=== PATIENT | male | born 1975 ===

== ENCOUNTER 2020-04-08 08:03 | Outpatient (REF) | payer OTHER, SELFPAY ==
[2020-04-08 09:06] LABS: Alanine Aminotransferase 24 U/L (0-40); Albumin Level 4.4 g/dL (3.5-5.0); Alkaline Phosphatase 98 U/L (39-117); Anion Gap 11 (12-20); Aspartate Amino Transferase 19 U/L (5-37); Bilirubin Total 1.1 mg/dL (0.0-1.0); Blood Urea Nitrogen 16 mg/dL (9-16); Calcium 9.3 mg/dL (8.4-10.2); Carbon Dioxide 28 mmol/L (22-29); Chloride 106 mmol/L (96-108); Estimated Glomerular Filt Rate > 60; Glucose Fasting 108 mg/dL (60-99); Potassium 5.2 mmol/L (3.3-5.1); Sodium 140 mmol/L (135-145); Total Protein 6.9 g/dL (6.5-8.0)
== END 2020-04-08 08:04 | disposition home or self-care (01) ==
LOC: HO.LAB 08:03
PROVIDERS: PCP Internal Medicine; Visit Provider Internal Medicine
DX: E16.2 Hypoglycemia, unspecified (principal)
CPT/HCPCS: 36415; 80053

== ENCOUNTER 2020-04-19 13:07 | Emergency (ER) | payer OTHER, SELFPAY ==
[2020-04-19] VITALS (7 sets, daily range): BP systolic 120–169; BP diastolic 73–115; PULSE 71–86; RESP 18–20; TEMP 36.9; O2SAT 95–97; BMI 31.6
--- NOTE | ~2020-04-19 | CT_ITS ---
EXAMINATION: CT HEAD WITHOUT CONTRAST CLINICAL INFORMATION: New onset of severe headache COMPARISON: CT head 05/13/2012 TECHNIQUE: Contiguous axial imaging was performed from the skull base to vertex without intravenous administration of contrast. Coronal and sagittal reformatted images are performed at the CT scanner. [This CT examination was performed using dose optimization techniques as appropriate, variously including the following: *Automated exposure control *Adjustment of mA and/or kV according to patient size (this includes techniques or standardized protocols for targeted exams where dose is matched to indication/reason for exam; i.e. extremities or head) *Use of iterative reconstruction technique] DLP: 667 mGy-cm. FINDINGS: There is no evidence of acute intracranial hemorrhage or territorial infarction. No abnormal mass-effect or midline shift is seen. Sprague to white matter differentiation is well preserved. No extra-axial fluid collections are identified. The ventricles are normal in size. There is no abnormal attenuation within the brain parenchyma. There is no osseous abnormality. The mastoid air cells and visualized portions of the paranasal sinuses are well-aerated. CT/CT head/brain wo con IMPRESSION: No acute intracranial pathology.
[2020-04-19 16:17] LABS: MANUAL DIFF FLAG NO
[2020-04-19 16:20] LABS: Basophils Percent Auto 0.2 % (0-2); Eosinophils Percent Auto 0.3 % (0-4); Hematocrit 44.9 % (42-52); Hemoglobin 15.3 g/dl (14.0-18.0); Imm Gran Abs Auto 0.02 X10*3/uL (0.00-0.03); Imm Gran Pct Auto 0.2 % (0.0-0.4); Lymphocytes Absolute Auto 1.9 X10*3/uL (1.2-4.9); Lymphocytes Percent Auto 19.2 % (20-40); Mean Corpuscular HGB Conc 34.1 g/dl (31.0-36.0); Mean Corpuscular Hemoglobin 30.9 pg (27.0-33.0); Mean Corpuscular Volume 90.7 fL (80-98); Mean Platelet Volume 10.5 fL (9.4-12.4); Monocytes Absolute Auto 0.7 X10*3/uL (0.1-1.2); Monocytes Percent Auto 6.9 % (2-11); Neutrophils Absolute Auto 7.3 X10*3/uL (2.0-8.3); Neutrophils Percent Auto 73.2 % (45-73); Platelet Count 235 X10*3/uL (160-400); Red Blood Count 4.95 X10*6/uL (4.60-5.80); Red Cell Distribution Width 12.1 % (11.0-16.0); White Blood Count 9.9 X10*3/uL (4.8-10.8)
[2020-04-19 16:47] LABS: Anion Gap 12 (12-20); Blood Urea Nitrogen 17 mg/dL (9-16); Calcium 9.1 mg/dL (8.4-10.2); Carbon Dioxide 27 mmol/L (22-29); Chloride 105 mmol/L (96-108); Creatinine Clr Calc Pharmacy 90.7; Estimated Glomerular Filt Rate > 60; Glucose Random 83 mg/dL (60-115); Sodium 140 mmol/L (135-145)
--- NOTE | 2020-04-19 19:53 | ED_ITS ---
HPI - Headache General Chief Complaint: Headache Stated Complaint: HEADACHE Time Seen by Provider: 04/19/20 14:16 Source: patient Mode of arrival: ambulatory Limitations: no limitations History of Present Illness HPI Narrative: Patient history of anxiety and increased stress at home lately complaining of headache for last 1 week specially localized on the left side patient denies any history of migraine headache no nausea no vomiting had increased anxiety and poor sleep lately no photosensitivity no fever no chills no neck pain no head injury no vision change Related Data Previous Rx's Medication Instructions Recorded qezpsawdlj-lqhhzgetjpwcz-qnjz 1 cap PO Q6H PRN #20 cap 04/19/20 [Fioricet] lorazepam [Ativan] 1 mg PO BEDTIME PRN #10 tab 04/19/20 Allergies Allergy/AdvReac Type Severity Reaction Status Date / Time No Known Allergies Allergy Unverified 11/20/19 18:18 [No Known Allergies*] Review of Systems Review of Systems: Constitutional : No Weight loss, No Fever, No Chills ENT/Mouth : No sore throat, No Rhinorrhea Eyes: No Eye Pain, No Swelling Cardiovascular : No Chest Pain, no palpitations Respiratory : No Cough, No Sputum, no shortness of breath Gastrointestinal : no Nausea, No Vomiting, No Diarrhea, No abdominal Pain, no black stools Genitourinary : No Dysuria, No Urinary Frequency Musculoskeletal : No joint pain, No Myalgias, No Joint Swelling Skin : No Skin Lesions, No rash Neuro : No Weakness, No Numbness, No Dizziness, ++ Headache Psych : + Anxiety/Panic, No Depression Heme/Lymph: No Bruising, No Lymphadenopathy Endocrine : No Polyuria, No Polydipsia All other systems reviewed and are negative [facility] [place] Past Medical History Medical History Hypoglycemia Family History Family History Father Heart problem Mother Cancer Social History Social History Alcohol intake: never Smoking Status: Never smoker Use of substances other than those prescribed or required for medical reasons: No Advance Directives: No Advance Directives Information Provided: Yes Physical Exam Vital Signs: Vital Signs: Last Vital Signs Temp 98.4 F 04/19/20 16:05 Pulse 71 02/15/21 22:10 Resp 18 04/19/20 22:10 BP 135/93 H 04/19/20 22:10 Pulse Ox 95 04/19/20 20:51 Body Mass Index 31.6 Appearance: Alert. Oriented X3. No acute distress. Anxious Eyes: Pupils equal, round and reactive to light. ENT: Pharynx normal. Neck: Normal inspection. Neck supple. CVS: Normal heart rate and rhythm. Pulses normal. Respiratory: No respiratory distress. Breath sounds normal. Abdomen: Soft and nontender. Bowel sounds are present, no mass palpable, no CVA tenderness Skin: Skin warm and dry. Normal skin color. Normal skin turgor. Extremities: No lower extremity edema. Neuro: Oriented X 3. No motor deficit. No sensory deficit. MDM - Headache MDM Narrative Medical decision making narrative: Patient with increased anxiety and stress on arrival patient's blood pressure was 128/77 during stay in the ER blood pressure increased when he started looking at the blood pressure reading to 168/115 after relaxing blood pressure dropped to 135/93. Patient headache is likely from tension headache. Will give him Fioricet and Ativan to relax advised to check his blood pressure daily and follow up with PCP Differential Diagnosis Differential diagnosis: Likely migraine and tension headache Lab Data Attestation: I reviewed the patient's lab results. Result diagrams: 04/19/20 16:12 04/19/20 16:12 Labs: Lab Results 04/19/20 04/19/20 Range/Units 16:12 16:12 WBC 9.9 (4.8-10.8) X10*3/uL RBC 4.95 (4.60-5.80) X10*6/uL Hgb 15.3 (14.0-18.0) g/dl Hct 44.9 (42-52) % MCV 90.7 (80-98) fL MCH 30.9 (27.0-33.0) pg MCHC 34.1 (31.0-36.0) g/dl RDW 12.1 (11.0-16.0) % Plt Count 235 (160-400) X10*3/uL MPV 10.5 (9.4-12.4) fL Immature Gran % (Auto) 0.2 (0.0-0.4) % Neut % (Auto) 73.2 H (45-73) % Lymph % (Auto) 19.2 L (20-40) % [place] % (Auto) 6.9 (2-11) % Eos % (Auto) 0.3 (0-4) % Baso % (Auto) 0.2 (0-2) % Lymph # (Auto) 1.9 (1.2-4.9) X10*3/uL [place] # (Auto) 0.7 (0.1-1.2) X10*3/uL Eos # (Auto) 0.0 (0.0-0.4) X10*3/uL Baso # (Auto) 0.0 (0.0-0.2) X10*3/uL Abs Immat Gran (auto) 0.02 (0.00-0.03) X10*3/uL Absolute Neuts (auto) 7.3 (2.0-8.3) X10*3/uL Absolute Nucleated RBC 0.000 (0.0-0.012) X10*3/uL Nucleated RBC % (auto) 0.0 (0.0-0.2) /100WBC Sodium 140 (135-145) mmol/L Potassium 4.0 D (3.3-5.1) mmol/L Chloride 105 (96-108) mmol/L Carbon Dioxide 27 (22-29) mmol/L Anion Gap 12 (12-20) BUN 17 H (9-16) mg/dL Creatinine 1.06 (0.5-1.4) mg/dL Estim Creat Clear Calc 90.7 Estimated GFR > 60 Random Glucose 83 (60-115) mg/dL Calcium 9.1 (8.4-10.2) mg/dL Discharge Plan Discharge Clinical Impression: Tension headache, Anxiety Patient Disposition: Home, Self-Care Instructions: Tension Headache (ED), Anxiety (ED) Additional Instructions: Rest at home take medication to relax. Check blood pressure daily should be less than 140/90. Take medication for headache Prescriptions: New qfuebvmtrh-coomhujrnhtde-fhkq [Fioricet] 50-300-40 mg capsule 1 cap PO Q6H PRN (Reason: pain) Qty: 20 RF: 0 lorazepam [Ativan] 1 mg tablet 1 mg PO BEDTIME PRN (Reason: sleep) Qty: 10 RF: 0 Print Language: Russian
--- NOTE | 2020-04-19 20:54 | PC.NURSE ---
pt had a bowl of soup and bp is elevated. pt has hx of htn, pain to head unreleived with imitrex.
--- NOTE | 2020-04-19 21:15 | PC.NURSE ---
pt taken to ct.
[2020-04-19] MEDS: Butalb/Acetamin/Caff 50/325/40 TABLET 1 TAB PO (22:07)
== END 2020-04-19 23:03 | disposition home or self-care (01) ==
PROVIDERS: Emergency Provider Internal Medicine; PCP Internal Medicine
DX: G44.209 Tension-type headache, unspecified, not intractable (principal); F41.9 Anxiety disorder, unspecified
CPT/HCPCS: 36415; 70450; 80048; 85025; 96372; 99284; J3030

== ENCOUNTER 2020-10-27 09:53 | Outpatient (REF) | payer OTHER, SELFPAY ==
--- NOTE | 2020-10-27 09:56 | EMG_ITS ---
This is a 45-year-old man with a 2-year history of bilateral lower extremity pain and numbness. PHYSICAL EXAMINATION: On examination, he is alert and oriented with normal intellectual functions. Cranial nerves II through XII are normal. Muscle tone and strength are normal. IMPRESSION: Rule out peripheral neuropathy. Nerve conduction EMG study: Normal electrodiagnostic study of both lower extremities with no evidence of generalized peripheral neuropathy or nerve entrapment. Normal EMG of the right L4-S1 innervated muscles. MD KARIN Maria/SUSANA / [id number]
== END 2020-10-27 09:54 | disposition home or self-care (01) ==
LOC: HO.NEURO 09:53
PROVIDERS: Visit Provider Internal Medicine
DX: R20.0 Anesthesia of skin (principal)
CPT/HCPCS: 95885; 95912

== ENCOUNTER 2021-02-14 16:27 | Emergency (ER) | payer OTHER, SELFPAY ==
--- NOTE | 2021-02-14 | ECG_ITS ---
Test Reason : cp Blood Pressure : / mmHG Vent. Rate : 103 BPM Atrial Rate : 103 BPM P-R Int : 140 ms QRS Dur : 076 ms QT Int : 342 ms P-R-T Axes : 019 044 025 degrees QTc Int : 448 ms Sinus tachycardia Anterior infarct , age undetermined Abnormal ECG When compared to the previous EKG of No significant changes seen Referred By: Generic ED Physician Electronically Signed By:RONALD MULLIGAN MD
--- NOTE | ~2021-02-14 | XR_ITS ---
EXAMINATION: XR CHEST CLINICAL INFORMATION: Chest pain COMPARISON: Chest x-ray 04/22/2018 TECHNIQUE: Frontal view of the chest was obtained. 6:52 PM FINDINGS: No significant abnormality is noted involving the heart, lungs, mediastinum, bony thorax or soft tissues. XR/XR chest 1V IMPRESSION: Unremarkable examination.
[2021-02-14 18:35] VITALS: BP 129/96; PULSE 100; RESP 18; TEMP 36.9; O2SAT 98; BMI 31.6
[2021-02-14 20:32] LABS: MANUAL DIFF FLAG NO
[2021-02-14 20:34] LABS: Basophils Percent Auto 0.1 % (0-2); Eosinophils Percent Auto 0.2 % (0-4); Hematocrit 49.4 % (42.0-52.0); Hemoglobin 16.9 g/dl (14.0-18.0); Imm Gran Abs Auto 0.04 X10*3/uL (0.00-0.03); Imm Gran Pct Auto 0.3 % (0.0-0.4); Lymphocytes Percent Auto 8.2 % (20-40); Mean Corpuscular HGB Conc 34.2 g/dl (31.0-36.0); Mean Corpuscular Hemoglobin 31.1 pg (27.0-33.0); Mean Corpuscular Volume 90.8 fL (80.0-98.0); Mean Platelet Volume 10.6 fL (9.4-12.4); Monocytes Absolute Auto 0.4 X10*3/uL (0.1-1.2); Monocytes Percent Auto 3.6 % (2-11); Neutrophils Absolute Auto 10.2 x10*3/uL (2.0-8.3); Neutrophils Percent Auto 87.6 % (45-73); Platelet Count 231 X10*3/uL (160-400); Red Blood Count 5.44 X10*6/uL (4.60-5.80); Red Cell Distribution Width 12.6 % (11.0-16.0); White Blood Count 11.7 X10*3/uL (4.8-10.8)
[2021-02-14 20:46] LABS: Anion Gap 14 (12-20); Blood Urea Nitrogen 15 mg/dL (9-16); Calcium 9.9 mg/dL (8.4-10.2); Carbon Dioxide 26 mmol/L (22-29); Chloride 104 mmol/L (96-108); Creatinine Clr Calc Pharmacy 71.5; Estimated Glomerular Filt Rate 58; Glucose Random 117 mg/dL (60-115); Potassium 3.8 mmol/L (3.3-5.1); Sodium 140 mmol/L (135-145)
[2021-02-14 20:54] LABS: Troponin-I High Sensitivity < 3.5 ng/L (<3.5-35.0)
--- NOTE | 2021-02-14 21:12 | ED_ITS ---
HPI - Chest Pain General Chief Complaint: Chest Pain Stated Complaint: Chest pain/vomiting/Diarrhea Time Seen by Provider: 02/14/21 21:12 History of Present Illness HPI narrative: Patient is a 46-year-old male presents today with having chest pain that is over the right chest. It is constant. No diaphoresis. No fever no chills. No coughing or congestion. Positive history of nausea vomiting diarrhea generalized malaise. No history of diabetes, hypertension, smoking, [place]. Patient from home. No travel history. patient received his coronavirus vaccine. No history of blood clots. No history of leg swelling. No travel history. Related Data Previous Rx's Medication Instructions Recorded clotrimazole-betamethasone 1 1 appl TOPICAL BID 14 Days #15 g 02/10/21 %-0.05 % topical cream omeprazole 40 mg capsule,delayed 40 mg PO DAILY 90 Days #90 cap 02/10/21 release ondansetron 4 mg disintegrating 4 mg PO TID PRN 5 Days #10 tab 02/14/21 tablet Allergies Allergy/AdvReac Type Severity Reaction Status Date / Time No Known Allergies Allergy Verified 02/14/21 18:34 [No Known Allergies*] Review of Systems Review of Systems: Positive chest pain. No shortness of breath no diaphoresis. Yes all other systems are reviewed and are negative PMFSH Past Medical History Attestation statement: The following information was validated with the patient. Medical History Anxiety Class 1 obesity with body mass index (BMI) of 32.0 to 32.9 in adult GERD (gastroesophageal reflux disease) Hand numbness History of kidney stones Hypoglycemia Skin lesion Surgical History No pertinent past surgical history Family History Family History Father Heart problem Mother Cancer Social History Social History Housing: House Alcohol intake: former Year quit: 2005 Patient Tobacco Use Status: Former Tobacco user Tobacco use type: Cigarette Years Smoked: 6 years e-Cigarette/Vaping Use: Never Used Second Hand Smoke Exposure: No Advance Directives: No Advance Directives Information Provided: Yes service: No Current occupational status: employed Current occupational exposures/hazards: No Physical Exam Vital Signs: Vital Signs: Last Vital Signs Temp 98.5 F 02/14/21 18:35 Pulse 100 02/14/21 18:35 Resp 18 02/14/21 18:35 BP 129/96 H 02/14/21 18:35 Pulse Ox 98 02/14/21 18:35 BMI result Body Mass Index 31.6 Appearance: Alert. Oriented X3. No acute distress. Eyes: Pupils equal, round and reactive to light. ENT: Pharynx normal. Neck: Normal inspection. Neck supple. No lymph nodes noted. No crepitus CVS: Normal heart rate and rhythm. Pulses normal. Normal S1 and S2 Respiratory: No respiratory distress. Breath sounds normal. No Wheezing. No rales Abdomen: Soft and nontender. No rigidity. No distention. good BS x4 Skin: Skin warm and dry. Normal skin color. Normal skin turgor. Extremities: No lower extremity edema. Neurovascular intact to all extremities. No Lacerations. No Rash Neuro: Oriented X 3. No motor deficit. No sensory deficit. Moving all extermities. No slurred speech MDM - Chest Pain Lab Data Result diagrams: 02/14/21 20:27 02/14/21 20:27 Labs: Lab Results 02/14/21 02/14/21 02/14/21 Range/Units 20:27 20:27 20:27 WBC 11.7 H (4.8-10.8) X10*3/uL RBC 5.44 (4.60-5.80) X10*6/uL Hgb 16.9 (14.0-18.0) g/dl Hct 49.4 (42.0-52.0) % MCV 90.8 (80.0-98.0) fL MCH 31.1 (27.0-33.0) pg MCHC 34.2 (31.0-36.0) g/dl RDW 12.6 (11.0-16.0) % Plt Count 231 (160-400) X10*3/uL MPV 10.6 (9.4-12.4) fL Immature Gran % (Auto) 0.3 (0.0-0.4) % Neut % (Auto) 87.6 H (45-73) % Lymph % (Auto) 8.2 L (20-40) % [place] % (Auto) 3.6 (2-11) % Eos % (Auto) 0.2 (0-4) % Baso % (Auto) 0.1 (0-2) % Lymph # (Auto) 1.0 L (1.2-4.9) X10*3/uL [place] # (Auto) 0.4 (0.1-1.2) X10*3/uL Eos # (Auto) 0.0 (0.0-0.4) X10*3/uL Baso # (Auto) 0.0 (0.0-0.2) X10*3/uL Abs Immat Gran (auto) 0.04 H (0.00-0.03) X10*3/uL Absolute Neuts (auto) 10.2 H (2.0-8.3) x10*3/uL Absolute Nucleated RBC 0.000 (0.0-0.012) X10*3/uL Nucleated RBC % (auto) 0.0 (0.0-0.2) /100WBC Sodium 140 (135-145) mmol/L Potassium 3.8 (3.3-5.1) mmol/L Chloride 104 (96-108) mmol/L Carbon Dioxide 26 (22-29) mmol/L Anion Gap 14 (12-20) BUN 15 (9-16) mg/dL Creatinine 1.33 (0.5-1.4) mg/dL Estim Creat Clear Calc 71.5 Estimated GFR 58 Random Glucose 117 H D (60-115) mg/dL Calcium 9.9 D (8.4-10.2) mg/dL Troponin I High Sens < 3.5 (<3.5-35.0) ng/L COVID-19 (JOHAN) (Negative) COVID-19 Clin Com 02/14/21 Range/Units 21:25 WBC (4.8-10.8) X10*3/uL RBC (4.60-5.80) X10*6/uL Hgb (14.0-18.0) g/dl Hct (42.0-52.0) % MCV (80.0-98.0) fL MCH (27.0-33.0) pg MCHC (31.0-36.0) g/dl RDW (11.0-16.0) % Plt Count (160-400) X10*3/uL MPV (9.4-12.4) fL Immature Gran % (Auto) (0.0-0.4) % Neut % (Auto) (45-73) % Lymph % (Auto) (20-40) % [place] % (Auto) (2-11) % Eos % (Auto) (0-4) % Baso % (Auto) (0-2) % Lymph # (Auto) (1.2-4.9) X10*3/uL [place] # (Auto) (0.1-1.2) X10*3/uL Eos # (Auto) (0.0-0.4) X10*3/uL Baso # (Auto) (0.0-0.2) X10*3/uL Abs Immat Gran (auto) (0.00-0.03) X10*3/uL Absolute Neuts (auto) (2.0-8.3) x10*3/uL Absolute Nucleated RBC (0.0-0.012) X10*3/uL Nucleated RBC % (auto) (0.0-0.2) /100WBC Sodium (135-145) mmol/L Potassium (3.3-5.1) mmol/L Chloride (96-108) mmol/L Carbon Dioxide (22-29) mmol/L Anion Gap (12-20) BUN (9-16) mg/dL Creatinine (0.5-1.4) mg/dL Estim Creat Clear Calc Estimated GFR Random Glucose (60-115) mg/dL Calcium (8.4-10.2) mg/dL Troponin I High Sens (<3.5-35.0) ng/L COVID-19 (JOHAN) Negative (Negative) COVID-19 Clin Com See Note Discharge Plan Discharge Clinical Impression: Atypical chest pain Patient Disposition: Home, Self-Care Instructions: Chest Pain (ED), Acute Nausea and Vomiting (ED) Prescriptions: New ondansetron 4 mg tablet,disintegrating 4 mg PO TID PRN (Reason: nausea and vomiting) 5 Days Qty: 10 RF: 0 No Action omeprazole 40 mg capsule,delayed release(DR/EC) 40 mg PO DAILY 90 Days Qty: 90 RF: 1 clotrimazole-betamethasone 1-0.05 % cream 1 appl topical BID 14 Days Qty: 15 RF: 1 Referrals: Shannon Swift MD [Primary Care Provider] - 2 days Print Language: Mauritian
[2021-02-14 22:17] LABS: COVID-19 Test Negative (Negative); IDNOW Serial# 55D5AD1C
[2021-02-14 23:05] VITALS: BP 130/96; PULSE 98
== END 2021-02-14 23:07 | disposition home or self-care (01) ==
PROVIDERS: Emergency Provider Emergency Medicine Emergency Medical Services; PCP Internal Medicine
DX: R07.89 Other chest pain (principal); Z20.822 Contact with and (suspected) exposure to COVID-19
CPT/HCPCS: 36415; 71045; 80048; 84484; 85025; 87635; 93005; 99283; 99284

== ENCOUNTER 2021-03-30 10:21 | Outpatient (REF) | payer OTHER, SELFPAY ==
--- NOTE | 2021-03-30 10:26 | EMG_ITS ---
This is a 46-year-old man with history of bilateral hand pain and numbness. His neurological exam is normal. There is no Tinel or Phalen sign. IMPRESSION: Rule out carpal tunnel syndrome. Nerve conduction EMG study: Mild carpal tunnel syndrome on the right, early carpal tunnel syndrome on the left. Normal EMG of the right C5 through T1 innervated muscles. MD KARIN Maria/SUSANA / [id number]
== END 2021-03-30 10:22 | disposition home or self-care (01) ==
LOC: HO.NEURO 10:21
PROVIDERS: Visit Provider Internal Medicine
DX: R20.0 Anesthesia of skin (principal)
CPT/HCPCS: 95885; 95913

== ENCOUNTER 2022-07-25 06:14 | Outpatient (REF) | payer OTHER, SELFPAY ==
--- NOTE | ~2022-07-25 | XR_ITS ---
EXAMINATION: XR CHEST CLINICAL INFORMATION: Chest pain. COMPARISON: Chest radiograph 02/14/2021. TECHNIQUE: 2 views of the chest were obtained. FINDINGS: Normal appearance of the cardiomediastinal silhouette. Minimal diffuse interstitial thickening without focal airspace opacity. No pleural effusion or pneumothorax. Minimal biapical subpleural thickening is unchanged. Thoracic spondylosis. No acute osseous abnormalities. The visualized upper abdomen is within normal limits. XR/XR chest 2V IMPRESSION: Minimal diffuse interstitial thickening which is nonspecific and could be associated with asthma, bronchitis, reactive airways disease or atypical viral infections.
[2022-07-25 07:33] LABS: Hematocrit 43.6 % (42.0-52.0); Mean Corpuscular HGB Conc 34.4 g/dl (31.0-36.0); Mean Corpuscular Hemoglobin 30.8 pg (27.0-33.0); Mean Corpuscular Volume 89.5 fL (80.0-98.0); Mean Platelet Volume 11.3 fL (9.4-12.4); Platelet Count 228 X10*3/uL (160-400); Red Blood Count 4.87 X10*6/uL (4.60-5.80); Red Cell Distribution Width 12.3 % (11.0-16.0)
[2022-07-25 08:04] LABS: Alanine Aminotransferase 28 U/L (0-40); Albumin Level 4.2 g/dL (3.5-5.0); Alkaline Phosphatase 105 U/L (39-117); Anion Gap 13 (12-20); Aspartate Amino Transferase 18 U/L (5-37); Bilirubin Total 1.2 mg/dL (0.0-1.0); Blood Urea Nitrogen 16 mg/dL (9-16); Calcium 9.1 mg/dL (8.4-10.2); Carbon Dioxide 24 mmol/L (22-29); Chloride 106 mmol/L (96-108); Cholesterol 203 mg/dL; Estimated Glomerular Filt Rate > 60; Glucose Fasting 100 mg/dL (60-99); HDL Cholesterol 27 mg/dL; LDL Cholesterol Calculated 147 mg/dl; Potassium 4.2 mmol/L (3.3-5.1); Sodium 139 mmol/L (135-145); Total Protein 6.6 g/dL (6.5-8.0); Triglycerides 149 mg/dL
[2022-07-25 08:26] LABS: TSH reflex Free T4 1.57 uIU/mL (0.32-4.0)
== END 2022-07-25 06:15 | disposition home or self-care (01) ==
LOC: HO.LAB 06:14
PROVIDERS: PCP Internal Medicine; Visit Provider Physician Assistant
DX: R07.9 Chest pain, unspecified (principal); R53.83 Other fatigue; E66.9 Obesity, unspecified; Z68.32 Body mass index [BMI] 32.0-32.9, adult; Z13.1 Encounter for screening for diabetes mellitus
CPT/HCPCS: 36415; 71046; 80053; 80061; 84443; 85027

== ENCOUNTER → 2022-08-15 07:48 | Outpatient (REF) | payer OTHER, SELFPAY ==
--- NOTE | 2022-08-15 08:01 | CA_ITS ---
Acquisition Time: 2022-08-15 08:11:46 Total Exercise Time: 00:08:10 Test Indications: CP Medications: SEE H Protocol: MILTON Max HR: 153 BPM 87% of Pred: 175 BPM Max BP: 160/080 mmHG Max Work Load: 10.1 METS Exercise stress test with exercise 8 min 10 sec of Milton protocol, achieving 87% MPHR, 10.1 METs, with fatigue and mild sob with request to stop, no chest discomfort, without arrythmia, with normotensive response to exercise, without EKG changes meeting critieria for ischemia. Test reviewed with Dr Jimenez Referred By: Sheng Venegas Overread By: JERMAIN ALBARADO
== END ==
LOC: HO.CARD 07:48
PROVIDERS: PCP Internal Medicine; Visit Provider Physician Assistant
DX: R07.9 Chest pain, unspecified (principal); R06.81 Apnea, not elsewhere classified
CPT/HCPCS: 93017

== ENCOUNTER 2022-10-24 13:35 | Outpatient (AMB) | payer OTHER, SELFPAY ==
[2022-10-24 14:11] VITALS: BP 142/80; PULSE 88; O2SAT 97
--- NOTE | 2022-10-24 14:11 | MHC.OFFVIS ---
Intake Vital Signs 10/24/22 14:11 Weight 199 lb 8.293 oz BP 142/80 H Blood Pressure Location Lt brachial Position Sitting Pulse 88 Pulse Source Pulse Oximeter Pulse Oximetry (%) 97 Oxygen Delivery Method Room Air Intake Visit Reasons: Dyspnea/SOFIA Allergies No Known Allergies [No Known Allergies*] Allergy (Verified 10/24/22 14:42) Medication List - Last Reconciled 10/24/22 by Gisele Hunt MD clotrimazole-betamethasone 1-0.05 % 1 appl topical BID 2 weeks CPAP (CPAP Machine/Device) As directed omeprazole 40 mg PO DAILY 90 days Do you need a note to return to daycare/school/sports/work: No HPI Dyspnea/SOFIA HPI Details THIS 47 YEARS OLD GENTLEMAN [place] IS BEING SEEN FOR THE 1ST TIME, FOR ONGOING MANAGEMENT OF HIS SLEEP APNEA AND DYSPNEA ON EXERTION. SINCE THE BEGINNING OF 2022, HE HAS GRADUALLY INCREASING DYSPNEA ON EXERTION, HE LIVES ON THE 2ND FLOOR AND GOING UP STAIRS MAKES HIM VERY SHORT OF BREATH. HE DOES NOT HAVE ANY COUGH OR WHEEZING ALONG WITH DYSPNEA. HE USUALLY HAS TO STOP AT THE TOP OF THE STAIRS. DENIES ANY CHEST PAIN . THIS DYSPNEA ON EXERTION COINCIDES WITH WEIGHT GAIN, HE CLAIMS THAT HIS NORMAL WEIGHT USED TO BE 170-175, AND HE GAINED ABOUT 20-25 LB OF WEIGHT. HE DOES NOT USE ANY BRONCHODILATOR INHALER. HE DENIES ANY RECURRENT RESPIRATORY INFECTIONS. SINCE THE BEGINNING OF THIS YEAR HE WAS ALSO HAVING DIFFICULTY IN SLEEPING, DUE TO FREQUENT AWAKENINGS, AND HIS TOLD HIM THAT HE SNORES A LOT. SO HE DID UNDERGO HOME-BASED SLEEP STUDY ON 08/16/2022, WHICH SHOWED MODERATELY SEVERE OBSTRUCTIVE SLEEP APNEA WITH TOTAL SLEEP TIME AHI 23.3, MOSTLY IN SUPINE POSITION. HIS PRIMARY CARE PHYSICIAN HAS ALREADY ORDERED THE CPAP, WITH AUTO PAP MODE, AND HE HAS STARTED USING IT REGULARLY. HE STATES THAT ACCORDING TO HIS HE DOES NOT SNORE ANYMORE AND HIS SLEEP IS DEFINITELY IMPROVED. HE STILL FEELS WEAK AND SOMEWHAT TIRED DURING THE DAYTIME. HE USED TO SMOKE IN YOUNGER AGE, FOR ABOUT 6-8 YEARS, BUT QUIT SMOKING LONG TIME AGO. [facility] Medical History (Updated 10/24/22 @ 14:57 by Gisele Hunt MD) Anxiety Class 1 obesity with body mass index (BMI) of 32.0 to 32.9 in adult Diarrhea GERD (gastroesophageal reflux disease) Hand numbness History of kidney stones Hypoglycemia Obesity (BMI 30-39.9) Skin lesion Surgical History No pertinent past surgical history Family History Father Heart problem Mother Cancer Social History Housing: House Alcohol intake: former Year quit: 2005 Patient Tobacco Use Status: Former Tobacco user Tobacco use type: Cigarette Years Smoked: 6 years e-Cigarette/Vaping Use: Never Used Second Hand Smoke Exposure: Yes service: No Current occupational status: employed Current occupational exposures/hazards: No Cognitive needs: No Hearing needs: No Vision needs: Yes (glasses) Review of Systems Const All systems reviewed & are unremarkable except as noted in HPI and below Reports fatigue and Reports snoring Eyes Reports no additional complaints ENT Reports no additional complaints Card Denies chest pain, Denies irregular heart rhythm, Denies leg edema and Reports dyspnea on exertion Resp Reports dyspnea on exertion, Reports snoring and Denies wheezing GI Reports no additional complaints Reports no additional complaints Musc Reports no additional complaints Skin/Breast Reports system reviewed and no additional complaints, except as documented Neuro Reports no additional complaints Psych Reports no additional complaints Endo Reports fatigue and Reports other (WEIGHT GAIN DURING THE PAST 6-8 MONTHS) Aller/Immun Denies wheezing Physical Exam Vital Signs: Last Vital Signs Pulse 88 10/24/22 14:11 BP 142/80 H 10/24/22 14:11 Pulse Ox 97 10/24/22 14:11 Oxygen Delivery Method Room Air 10/24/22 14:11 Const General: healthy appearing (EXCEPT FOR BEING OVERWEIGHT), comfortable, no acute distress, alert and awake Orientation/consciousness: patient oriented x3 HEENT Head: Yes normal to inspection General nose exam: No nasal polyps present and No nasal discharge present Face and sinus: Yes sinuses nontender Mouth: oropharynx abnormals (OROPHARYNX IS CROWDED, MALLAMPATI CLASS 3) Throat: Yes posterior oropharynx normal Eyes General: appearance normal, both eyes and all related structures Neck Neck: Yes normal visual inspection, Yes no lymphadenopathy, Yes trachea midline, Yes no JVD and Yes other (NECK CIRCUMFERENCE 17 IN) Thyroid: Thyroid normal Chest Chest palpation & inspection: normal inspection of the chest, normal palpation of entire chest wall and no tenderness Resp Effort & Inspection: normal respiratory effort Auscultation: clear to auscultation bilaterally, no crackles and no wheezes Cardio Palpation: normal PMI Rate: regular rate Rhythm: regular rhythm Heart sounds: no gallops and no murmurs Peripheral pulses: Peripheral pulses 2+ throughout GI Palpation (GI): Soft to palpation, nontender, No hepatosplenomegaly present and no masses Auscultation: normal bowel sounds Back/Spine/Pelvis Thoracic/Lumbar Spine: thoracic and lumbar spine normal to inspection Skin General skin exam: no rashes or lesions noted Neuro General: patient oriented x3 and no focal motor deficits Cranial nerves: Yes CN's II-XII intact bilaterally Extrem General: Yes normal to inspection, Yes no clubbing, cyanosis or edema and Yes no calf tenderness Psych Appearance: grossly normal and well kempt Speech and movement: Normal speech and movement present Results Reviewed Results Reviewed: SLEEP STUDY OF 08/16/2022 IS REVIEWED. TOTAL SLEEP TIME AHI 23.3, SUPINE AHI 26.4 RIGHT LATERAL POSITION AHI 0. SNORING FOR 22% OF THE SLEEP TIME. Assessment & Plan Assessment & Plan (1) Obesity (BMI 30-39.9): Comment: PATIENT IS MODERATELY OBESE. GIVES HISTORY OF GRADUAL WEIGHT GAIN SINCE START OF 2022. THIS COINCIDES WITH HIS ONSET OF DYSPNEA ON EXERTION AND ALSO SLEEP APNEA SYMPTOMS. DISCUSSED WITH HIM ABOUT THE WEIGHT AND ENCOURAGED HIM TO LOSE WEIGHT BY CUTTING DOWN THE CALORIES INTAKE AND ALSO BY WALKING DAILY. Code(s): E66.9 - Obesity, unspecified (2) SOFIA (obstructive sleep apnea): Comment: PATIENT DOES HAVE CLASSICAL SYMPTOMS OF SLEEP APNEA. HIS HOME-BASED SLEEP STUDY WAS POSITIVE FOR MODERATELY SEVERE IS OBSTRUCTIVE SLEEP APNEA. HE HAS BEEN STARTED ON CPAP WITH AUTO PAP MODE AND PRESSURE SETTING OF 6-16 CM, AND IS ALREADY BENEFITING FROM THE USE OF THE MASK. WE WERE NOT ABLE TO DOWNLOAD THE COMPLIANCE DATA. PATIENT IS ENCOURAGED TO KEEP ON USING THE CPAP REGULARLY AT LEAST FOR 6-7 HOURS EVERY NIGHT Code(s): G47.33 - Obstructive sleep apnea (adult) (pediatric) (3) Dyspnea on exertion: Code(s): R06.09 - Other forms of dyspnea Plan DYSPNEA ON EXERTION GRADUALLY INCREASING SINCE THE START 2022, COINCIDES WITH WEIGHT GAIN. BUT WE NEED TO RULE OUT ASTHMA/COPD. OR RESTRICTIVE LUNG DISEASE. WILL SCHEDULED FOR PULMONARY FUNCTION TEST. IN THE MEANTIME I.E. HE ADVISED HIM TO START LOSING WEIGHT, BY DAILY WALKING AND ALSO CUTTING DOWN ON THE INTAKE OF CARBS. I WILL RECHECK HIM IN 6-8 WEEKS. Coding Level of Care Code New Pt Level 4 (90894) Diagnoses Obesity (BMI 30-39.9) E66.9 SOFIA (obstructive sleep apnea) G47.33 Dyspnea on exertion R06.09
== END 2022-10-24 14:42 | disposition home or self-care (01) ==
PROVIDERS: PCP Internal Medicine; Visit Provider Internal Medicine
DX: E66.9 Obesity, unspecified (principal); G47.33 Obstructive sleep apnea (adult) (pediatric); R06.09 Other forms of dyspnea
CPT/HCPCS: 99204

== ENCOUNTER → 2022-10-24 13:35 | Outpatient (BNVA) | payer OTHER, SELFPAY | PROVIDERS: PCP Internal Medicine; Visit Provider Internal Medicine | DX: E66.9 Obesity, unspecified (principal); G47.33 Obstructive sleep apnea (adult) (pediatric); R06.09 Other forms of dyspnea | CPT/HCPCS: 99202 ==

== ENCOUNTER 2022-10-25 07:34 | Outpatient (AMB) | payer OTHER, SELFPAY ==
--- NOTE | 2022-10-25 07:51 | MHC.PC.OV ---
Vital Signs 10/25/22 07:52 Height 5 ft 5 in Weight 198 lb BMI 32.9 BP 118/86 Blood Pressure Location Lt brachial Position Sitting Intake Visit Reasons: 3 MONTH F/U Intake Note: Patient here for a 3 month follow up [facility] Pricing Consultant Required: No Accompanied by: Self / Same As Patient Allergies No Known Allergies [No Known Allergies*] Allergy (Verified 10/25/22 08:06) Medication List - Last Reconciled 10/25/22 by Shannon Case MD CPAP (CPAP Machine/Device) As directed omeprazole 40 mg PO DAILY 90 days Tobacco use date assessed: 07/24/22 Dental Screening Dental Screen Date: 10/25/22 Did you have a dental visit in the last 12 months?: Yes Did you have a dental problem in the last 6 months where you did not have access to dental care?: No Was dental information given to patient?: Patient has dentist HPI HPI Comments History of Present Illness Details This is a 47-year-old male with GERD and obstructive sleep apnea that comes today for follow-up on his conditions. He has had GERD for over 5 years and did and endoscopy years ago. Will be referred urgently to Gastroenterology for follow-up to see if he needs and other endoscopy. Has obstructive sleep apnea and feels markedly rested with CPAP machine. This is follow by pulmonology. He has dyspnea on exertion has improved and will have pulmonary testing and follow by pulmonology. No chest pain. [facility] Medical History Anxiety Class 1 obesity with body mass index (BMI) of 32.0 to 32.9 in adult Diarrhea GERD (gastroesophageal reflux disease) Hand numbness History of kidney stones Hypoglycemia Obesity (BMI 30-39.9) Skin lesion Surgical History No pertinent past surgical history Family History Father Heart problem Mother Cancer Social History Housing: House Alcohol intake: former Year quit: 2005 Patient Tobacco Use Status: Former Tobacco user Tobacco use type: Cigarette Years Smoked: 6 years e-Cigarette/Vaping Use: Never Used Second Hand Smoke Exposure: Yes service: No Current occupational status: employed Current occupational exposures/hazards: No Cognitive needs: No Hearing needs: No Vision needs: Yes (glasses) Questionnaire Thrive Questionnaire Date Thrive assessed: 07/24/22 UMER-7 AMB Questionnaire UMER-7 Date UMER - 7 assessed: 07/24/22 Source: Developed by Drs. Freddy Pete, Lindsay Zavaleta, Eugenio Alexander and colleagues, with an educational yancy from [employer]. Review of Systems Const All systems reviewed & are unremarkable except as noted in HPI and below Eyes Reports no additional complaints, Denies change in vision and Denies other visual disturbances Card Denies chest pain at rest, Denies chest pain with activity, Denies edema, Denies irregular heart rhythm, Denies claudication, Denies dyspnea, Denies dyspnea on exertion, Denies orthopnea, Denies paroxysmal nocturnal dyspnea and Denies slow heart rate Resp Denies cough, Denies dyspnea and Denies dyspnea on exertion GI Denies abdominal pain, Denies change in bowel habits, Denies excessive flatus, Denies nausea and Denies vomiting Denies urinary hesitancy, Denies urinary incontinence and Denies urinary urgency Musc Denies abnormal gait, Denies atrophy, Denies deformity and Denies limited range of motion Skin/Breast Denies bleeding lesions, Denies changing lesions and Denies rash Neuro Denies abnormal gait and Denies lack of coordination Physical exam (Primary Care) Vital Signs: Last Vital Signs BP 118/86 10/25/22 07:52 BMI result Body Mass Index 32.9 Tobacco/Smoking Status: Tobacco use Status Tobacco use date assessed 07/24/22 10/25/22 07:55 Patient Tobacco Use Status Former Tobacco user 10/25/22 07:55 Tobacco use type Cigarette 10/25/22 07:55 e-Cigarette/Vaping Use Never Used 10/25/22 07:55 Thrive Assessment: Date of Thrive Assessment Date Thrive assessed 07/24/22 10/25/22 07:55 Eyes General: appearance normal, both eyes and all related structures Eyelids: Yes eyelids normal Conjunctivae: conjunctivae normal Neck Neck: Yes normal visual inspection and Yes supple Resp Effort & Inspection: normal respiratory effort Auscultation: clear to auscultation bilaterally Cardio Jugular venous distension: no JVD Rate: regular rate Rhythm: regular rhythm Heart sounds: S1 normal heart sound present and S2 normal heart sound present Extrem General: Yes full ROM Assessment and Plan Assessment & Plan (1) SOFIA (obstructive sleep apnea): Comment: PATIENT DOES HAVE CLASSICAL SYMPTOMS OF SLEEP APNEA. HIS HOME-BASED SLEEP STUDY WAS POSITIVE FOR MODERATELY SEVERE IS OBSTRUCTIVE SLEEP APNEA. HE HAS BEEN STARTED ON CPAP WITH AUTO PAP MODE AND PRESSURE SETTING OF 6-16 CM, AND IS ALREADY BENEFITING FROM THE USE OF THE MASK. WE WERE NOT ABLE TO DOWNLOAD THE COMPLIANCE DATA. PATIENT IS ENCOURAGED TO KEEP ON USING THE CPAP REGULARLY AT LEAST FOR 6-7 HOURS EVERY NIGHT Code(s): G47.33 - Obstructive sleep apnea (adult) (pediatric) Plan: Continue cpap. (2) GERD (gastroesophageal reflux disease): Code(s): K21.9 - Gastro-esophageal reflux disease without esophagitis Qualifiers: Esophagitis presence: without esophagitis Qualified Code(s): K21.9 - Gastro-esophageal reflux disease without esophagitis Plan: Continue ppis Orders: Orders Comprehensive [place]. Panel Fast 4 Months R06.09 - Other forms of dyspnea Lipid Panel 4 Months E78.5 - Hyperlipidemia, unspecified Referrals Gastroenterology Referral K21.9 - Gastro-esophageal reflux disease without esophagitis Coding Level of Care Code Est Pt Level 3 (42006) Diagnoses SOFIA (obstructive sleep apnea) G47.33 GERD (gastroesophageal reflux disease) K21.9 Esophagitis presence: without esophagitis Time Spent (min) 19
[2022-10-25 07:52] VITALS: BP 118/86; BMI 32.9
== END 2022-10-25 08:11 | disposition home or self-care (01) ==
PROVIDERS: PCP Internal Medicine; Visit Provider Internal Medicine
DX: G47.33 Obstructive sleep apnea (adult) (pediatric) (principal); K21.9 Gastro-esophageal reflux disease without esophagitis
CPT/HCPCS: 99213

== ENCOUNTER 2022-12-19 13:23 | Outpatient (REF) | payer OTHER, SELFPAY ==
--- NOTE | 2022-12-19 14:17 | PFT_ITS ---
Forced vital capacity 103%, FEV1 105%, FEV1/FVC ratio is 82. HEJ61-02 118% and MVV is 86%. Post bronchodilator therapy, there is no significant change. Lung volumes; total lung capacity 100%, residual volume 114%. Diffusion capacity 94%. CONCLUSION: Normal pulmonary function test, and there is no evidence of any obstructive or restrictive pulmonary disorder. MD JOHNNIE Gregg/MODL / [id number]
== END 2022-12-19 13:24 | disposition home or self-care (01) ==
LOC: HO.RESP 13:23
PROVIDERS: PCP Internal Medicine; Visit Provider Internal Medicine
DX: R06.09 Other forms of dyspnea (principal); G47.33 Obstructive sleep apnea (adult) (pediatric); E66.9 Obesity, unspecified
CPT/HCPCS: 94010; 94727; 94729; 99212

== ENCOUNTER 2022-12-19 14:13 | Outpatient (AMB) | payer OTHER, SELFPAY ==
--- NOTE | 2022-12-19 14:53 | A.OFFVIS_ITS ---
Intake Vital Signs 12/19/22 14:55 Height 5 ft 5 in Weight 200 lb 9.93 oz BMI 33.4 BP 142/70 H Blood Pressure Location Rt brachial Position Sitting Pulse 92 Pulse Source Pulse Oximeter Pulse Oximetry (%) 96 Oxygen Delivery Method Room Air Intake Visit Reasons: Same day PFT Job Press Feeder Required: Yes Job Press Feeder Name: Dora FunesRamsey Cote Information Interpreted: non-clinical & clinical Allergies No Known Allergies [No Known Allergies*] Allergy (Verified 12/19/22 15:26) Medication List - Last Reconciled 12/19/22 by Gisele Hunt MD CPAP (CPAP Machine/Device) As directed omeprazole 40 mg PO DAILY 90 days Do you need a note to return to daycare/school/sports/work: No HPI Same day PFT HPI Details 47 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 HE WAS USING IT REGULARLY, AND SLEEPING BETTER. NOW HE HAS NOT USED CPAP FOR THE LAST 2 WEEKS COMPLAINING THAT HE DOES NOT TOLERATE THE MASK, HE FEELS THAT THERE IS TOO MUCH PRESSURE. HE PULLS OF THE MASK. HE SAY IS THAT HIS WANTS US TO HELP HIM FOR USING THE MASK. THE CPAP DEVICE WAS ORDERED BY HIS PRIMARY CARE PHYSICIAN., AND WE DO NOT HAVE INFORMATION ABOUT WHICH MODEL AND WHICH COMPANY HAS PROVIDED HIM THAT. WHEN PATIENT CAME LAST TIME HE HAD COMPLAINED OF SHORTNESS OF BREATH ON EXERTION, AND QUESTION OF BRONCHIAL ASTHMA. HE CAME TODAY TO HAVE A PULMONARY FUNCTION TEST AND TO BE SEEN BY ME. [facility] Medical History Obesity (BMI 30-39.9) Diarrhea Skin lesion Class 1 obesity with body mass index (BMI) of 32.0 to 32.9 in adult Hand numbness GERD (gastroesophageal reflux disease) History of kidney stones Anxiety Hypoglycemia Surgical History No pertinent past surgical history Family History Father Heart problem Mother Cancer Social History Housing: House Alcohol intake: former Year quit: 2005 Patient Tobacco Use Status: Former Tobacco user Tobacco use type: Cigarette Cigarette Packs Per Day: 2.0 Years Smoked: 6 years Smoked in Last 30 Days: No e-Cigarette/Vaping Use: Never Used Second Hand Smoke Exposure: Yes service: No Current occupational status: employed Current occupational exposures/hazards: No Cognitive needs: No Hearing needs: No Vision needs: Yes (glasses) Review of Systems Const All systems reviewed & are unremarkable except as noted in HPI and below Reports fatigue and Reports snoring Eyes Reports no additional complaints ENT Reports no additional complaints Card Denies chest pain, Denies irregular heart rhythm, Denies leg edema and Reports dyspnea on exertion Resp Reports dyspnea on exertion, Reports snoring and Denies wheezing GI Reports no additional complaints Reports no additional complaints Musc Reports no additional complaints Skin/Breast Reports system reviewed and no additional complaints, except as documented Neuro Reports no additional complaints Psych Reports no additional complaints Endo Reports fatigue and Reports other (WEIGHT GAIN DURING THE PAST 6-8 MONTHS) Aller/Immun Denies wheezing Physical Exam Vital Signs: Last Vital Signs Pulse 92 12/19/22 14:55 BP 142/70 H 12/19/22 14:55 Pulse Ox 96 12/19/22 14:55 Oxygen Delivery Method Room Air 12/19/22 14:55 BMI result Body Mass Index 33.4 Const General: healthy appearing (EXCEPT FOR BEING OVERWEIGHT), comfortable, no acute distress, alert and awake Orientation/consciousness: patient oriented x3 HEENT Head: Yes normal to inspection General nose exam: No nasal polyps present and No nasal discharge present Face and sinus: Yes sinuses nontender Mouth: oropharynx abnormals (OROPHARYNX IS CROWDED, MALLAMPATI CLASS 3) Throat: Yes posterior oropharynx normal Eyes General: appearance normal, both eyes and all related structures Neck Neck: Yes normal visual inspection, Yes no lymphadenopathy, Yes trachea midline, Yes no JVD and Yes other (NECK CIRCUMFERENCE 17 IN) Thyroid: Thyroid normal Chest Chest palpation & inspection: normal inspection of the chest, normal palpation of entire chest wall and no tenderness Resp Effort & Inspection: normal respiratory effort Auscultation: clear to auscultation bilaterally, no crackles and no wheezes Cardio Palpation: normal PMI Rate: regular rate Rhythm: regular rhythm Heart sounds: no gallops and no murmurs Peripheral pulses: Peripheral pulses 2+ throughout GI Palpation (GI): Soft to palpation, nontender, No hepatosplenomegaly present and no masses Auscultation: normal bowel sounds Back/Spine/Pelvis Thoracic/Lumbar Spine: thoracic and lumbar spine normal to inspection Skin General skin exam: no rashes or lesions noted Neuro General: patient oriented x3 and no focal motor deficits Cranial nerves: Yes CN's II-XII intact bilaterally Extrem General: Yes normal to inspection, Yes no clubbing, cyanosis or edema and Yes no calf tenderness Psych Appearance: grossly normal and well kempt Speech and movement: Normal speech and movement present Results Reviewed Results Reviewed: PULMONARY FUNCTION TEST. ESSENTIALLY NORMAL. NO EVIDENCE OF OBSTRUCTIVE OR RESTRICTIVE LUNG DISORDER. Assessment & Plan Assessment & Plan (1) Obesity (BMI 30-39.9): Comment: PATIENT IS MODERATELY OBESE. GIVES HISTORY OF GRADUAL WEIGHT GAIN SINCE START OF 2022. THIS COINCIDES WITH HIS ONSET OF DYSPNEA ON EXERTION AND ALSO SLEEP APNEA SYMPTOMS. DISCUSSED WITH HIM ABOUT THE WEIGHT AND ENCOURAGED HIM TO LOSE WEIGHT BY CUTTING DOWN THE CALORIES INTAKE AND ALSO BY WALKING DAILY. Code(s): E66.9 - Obesity, unspecified (2) SOFIA (obstructive sleep apnea): Comment: PATIENT DOES HAVE CLASSICAL SYMPTOMS OF SLEEP APNEA. HIS HOME-BASED SLEEP STUDY WAS POSITIVE FOR MODERATELY SEVERE IS OBSTRUCTIVE SLEEP APNEA. HE HAS BEEN STARTED ON CPAP WITH AUTO PAP MODE AND PRESSURE SETTING OF 6-16 CM, AND IS ALREADY BENEFITING FROM THE USE OF THE MASK. TODAY HE TELLS ME THAT HE HAS NOT USE CPAP FOR THE LAST 2 WEEKS ARE MORE. HE SAY IS IT IRRITATES HIS NOSE AND THROAT, EACH TIME HE PUTS ON THE MASK. HE WOULD LIKE US TO MANAGE THE CPAP AND ORDERS A NEW KIND OF MASK. HIS BROTHER USES CPAP WITH A [employer] FULLFACE MASK, AND THAT IS WHAT HE WOULD LIKE TO TRY. I TOLD HIM TO BRING THE CPAP MACHINE IN FOR US TO CHECK, AND THEN WILL SEND AN ORDER TO HIS DME SUPPLIER. FOR A FULLFACE MASK. AND THERE AFTER WE CAN CONTINUE TO MONITOR HIS COMPLIANCE. Code(s): G47.33 - Obstructive sleep apnea (adult) (pediatric) (3) Dyspnea on exertion: Comment: PATIENT HAD COMPLAINED ABOUT DYSPNEA ON EXERTION. WHICH I THOUGHT WAS DUE TO HIS WEIGHT GAIN AND POOR PHYSICAL CONDITIONING. TODAY PULMONARY FUNCTION TEST IS ESSENTIALLY NORMAL. NO EVIDENCE OF OBSTRUCTIVE OR RESTRICTIVE DISORDER. I HAVE EXPLAINED TO HIM AND REASSURED HIM THAT THERE IS NO UNDERLYING LUNG DISEASE. HE IS ENCOURAGED TO KEEP ON DOING DEEP BREATHING EXERCISES 2 OR 3 TIMES A DAY. Code(s): R06.09 - Other forms of dyspnea Coding Level of Care Code Est Pt Level 3 (81320) Diagnoses Obesity (BMI 30-39.9) E66.9 SOFIA (obstructive sleep apnea) G47.33 Dyspnea on exertion R06.09
[2022-12-19 14:55] VITALS: BP 142/70; PULSE 92; O2SAT 96; BMI 33.4
== END 2022-12-19 15:27 | disposition home or self-care (01) ==
PROVIDERS: PCP Internal Medicine; Visit Provider Internal Medicine
DX: G47.33 Obstructive sleep apnea (adult) (pediatric) (principal); R06.09 Other forms of dyspnea; E66.9 Obesity, unspecified; Z68.33 Body mass index [BMI] 33.0-33.9, adult
CPT/HCPCS: 94060; 94727; 94729; 99213

== ENCOUNTER 2022-12-25 07:52 | Outpatient (REF) | payer OTHER, SELFPAY ==
[2022-12-25 10:07] LABS: Lipase 28 U/L (8-78)
[2022-12-25 10:47] LABS: Folate 8.9 ng/mL (> or = 4.0); Vitamin B12 526 pg/mL (200-900)
[2022-12-28 16:43] LABS: Vitamin D 25-OH, D2 <4 ng/mL; Vitamin D 25-OH, D3 11 ng/mL; Vitamin D 25-OH, Total 11 ng/mL (30-100)
== END 2022-12-25 07:53 | disposition home or self-care (01) ==
LOC: HO.LAB 07:52
PROVIDERS: PCP Internal Medicine; Visit Provider Nurse Practitioner Family
DX: K21.9 Gastro-esophageal reflux disease without esophagitis (principal); G47.33 Obstructive sleep apnea (adult) (pediatric); K59.01 Slow transit constipation; R10.9 Unspecified abdominal pain; E55.9 Vitamin D deficiency, unspecified; R19.7 Diarrhea, unspecified; E78.00 Pure hypercholesterolemia, unspecified
CPT/HCPCS: 36415; 82306; 82607; 82746; 83690

== ENCOUNTER 2022-12-25 07:52 | Outpatient (AMB) | payer OTHER, SELFPAY ==
--- NOTE | 2022-12-25 08:03 | A.OFFVIS_ITS ---
Intake Vital Signs 12/25/22 08:10 Height 5 ft 5 in Weight 200 lb BMI 33.3 BP 128/84 Blood Pressure Location Lt brachial Position Sitting Pulse 73 Intake Visit Reasons: Gastroesophageal reflux disease (GERD) Intake Note: Patient new consult for GERD Patient cc: acid reflex with burning sensation, and some nauseas with out any vomit. Denies any other GI issues. Shear Grinder Operator Required: Yes Accompanied by: Self / Same As Patient Allergies No Known Allergies [No Known Allergies*] Allergy (Verified 12/25/22 08:03) HPI Gastroesophageal reflux disease (GERD) HPI Details 47-year-old male with past medical histo ry obesity, SOFIA, hypercholesteremia, anxiety is here today for initial consultation. Patient will send to us to evaluate lung symptoms acid reflux. Patient reports dyspepsia without dysphagia or odynophagia. Patient reports that he has been dealing with this for very long time. Patient has been taking omeprazole and it helps for the most part, however he continues to have symptoms occasionally during the day. His symptoms are worse during the night and in the morning. Patient often does not eat breakfast sometimes skips lunch. He eats dinner when he gets home from work. Patient drinks 2-3 coffees in the morning. Patient states that he drinks his coffee black. Patient had upper endoscopy in 2012 and was told that he has hiatal hernia. Patient was diagnosed with acid reflux. Patient reports that he is moving his bowels every couple days. Does not feel like he empties his bowels completely. Patient denies melena, hematochezia, unintentional weight loss or ribbon like stools. [facility] Medical History Obesity (BMI 30-39.9) Diarrhea Skin lesion Class 1 obesity with body mass index (BMI) of 32.0 to 32.9 in adult Hand numbness GERD (gastroesophageal reflux disease) History of kidney stones Anxiety Hypoglycemia Surgical History No pertinent past surgical history Family History Father Heart problem Mother Cancer Social History Housing: House Alcohol intake: former Year quit: 2005 Patient Tobacco Use Status: Former Tobacco user Tobacco use type: Cigarette Cigarette Packs Per Day: 2.0 Years Smoked: 6 years e-Cigarette/Vaping Use: Never Used Second Hand Smoke Exposure: Yes service: No Current occupational status: employed Current occupational exposures/hazards: No Cognitive needs: No Hearing needs: No Vision needs: Yes (glasses) Review of Systems Const Denies weight gain and Denies weight loss ENT Reports no additional complaints, Denies dysphagia and Denies odynophagia Card Reports no additional complaints Resp Reports no additional complaints GI Denies abdominal pain, Denies belching, Denies melena, Denies bloating, Denies change in bowel habits, Reports constipation, Denies dysphagia, Denies excessive flatus, Reports dyspepsia, Reports heartburn, Denies diarrhea, Denies loose stools, Denies nausea, Denies odynophagia and Denies vomiting Reports no additional complaints Musc Reports no additional complaints Neuro Reports no additional complaints Psych Reports no additional complaints Endo Reports no additional complaints Physical Exam Vital Signs: Last Vital Signs Pulse 73 12/25/22 08:10 BP 128/84 12/25/22 08:10 BMI result Body Mass Index 33.3 Const General: healthy appearing, no acute distress and well developed Orientation/consciousness: patient oriented x3 HEENT Head: Yes normal to inspection, Yes normocephalic and Yes atraumatic Face and sinus: Yes normal facial exam Mouth: Normal oral and palatal mucosa present Throat: Yes posterior oropharynx normal, Yes tonsils normal and Yes uvula midline Eyes General: appearance normal, both eyes and all related structures Neck Neck: Yes normal visual inspection, Yes full ROM and Yes trachea midline Thyroid: Thyroid normal Resp Effort & Inspection: normal respiratory effort, able to speak in complete sentences, no tracheal deviation and symmetric chest movement Auscultation: clear to auscultation bilaterally Cardio Rate: regular rate Heart sounds: S1 normal heart sound present and S2 normal heart sound present GI Inspection: Yes normal to inspection, No distended and Yes obesity Palpation (GI): Soft to palpation, not firm, nontender and No hepatosplenomegaly present Auscultation: normal bowel sounds General: Yes no CVA tenderness Back/Spine/Pelvis Back: no CVA tenderness Skin General skin exam: elasticity normal, turgor normal and dry skin Neuro General: patient oriented x3 Psych Appearance: grossly normal Mental Status: mental status grossly normal Assessment & Plan Assessment & Plan (1) GERD (gastroesophageal reflux disease): Code(s): K21.9 - Gastro-esophageal reflux disease without esophagitis Qualifiers: Esophagitis presence: without esophagitis Qualified Code(s): K21.9 - Gastro-esophageal reflux disease without esophagitis (2) Constipation: Code(s): K59.00 - Constipation, unspecified Qualifiers: Constipation type: slow transit constipation Qualified Code(s): K59.01 - Slow transit constipation Plan Patient will start Senokot to help him empty his bowels better. Patient will stop omeprazole and he will start Nexium half an hour before breakfast. Patient will avoid dietary triggers and late night snacking. Staying upright for minimum 3 hours after meals discussed with patient. Will check for H pylori and treat empirically if positive. Patient will be seen in 5 weeks. Will discuss going of for upper endoscopy. Patient is 47 years old and he will be due to go for colonoscopy as well. Will discuss with him. Patient is agreeable to this plan and verbalizes understanding of instructions. He was given the opportunity to ask questions and all questions answered. Thank you for allowing me to participate in his care Orders: Orders H pylori Ag Stool Today K21.9 - Gastro-esophageal reflux disease without esophagitis Vitamin B12 and Folate Today R19.7 - Diarrhea, unspecified Vitamin D 25-OH (D2 and D3) Today E55.9 - Vitamin D deficiency, unspecified Lipase Today R10.9 - Unspecified abdominal pain Medications: New sennosides (Senokot) 17.2 mg (2 x 8.6 mg) PO DAILY 180 tabs 3RF K59.04 - Chronic idiopathic constipation esomeprazole magnesium (Nexium) 40 mg PO DAILY 30 caps 5RF K21.9 - Gastro- esophageal reflux disease without esophagitis Discontinued omeprazole Discontinued Reason: Doctor's Order 40 mg PO DAILY 90 days 90 caps 1RF Coding Level of Care Code New Pt Level 4 (36183) Diagnoses Gastroesophageal reflux disease without esophagitis K21.9 Esophagitis presence: without esophagitis Slow transit constipation K59.01 Constipation type: slow transit constipation Time Spent (min) 45 Comment 30 minutes spent with patient and additional 15 minute spent reviewing her records.
[2022-12-25 08:10] VITALS: BP 128/84; PULSE 73; BMI 33.3
== END 2022-12-25 08:37 | disposition home or self-care (01) ==
PROVIDERS: PCP Internal Medicine; Visit Provider Nurse Practitioner Family
DX: K21.9 Gastro-esophageal reflux disease without esophagitis (principal); K59.01 Slow transit constipation
CPT/HCPCS: 99204

== ENCOUNTER 2022-12-27 10:42 | Outpatient (REF) | payer OTHER, SELFPAY | END 2022-12-27 10:43 | disposition home or self-care (01) | LOC: HO.LNP 10:42 | PROVIDERS: Visit Provider Nurse Practitioner Family | DX: K21.9 Gastro-esophageal reflux disease without esophagitis (principal) | CPT/HCPCS: 87338 ==

== ENCOUNTER 2023-01-29 07:59 | Outpatient (AMB) | payer OTHER, SELFPAY ==
[2023-01-29 08:09] VITALS: BP 153/89; PULSE 96; BMI 33.1
--- NOTE | 2023-01-29 08:09 | A.OFFVIS_ITS ---
Intake Vital Signs 01/29/23 08:09 Height 5 ft 5 in Weight 198 lb 13.711 oz BMI 33.1 BP 153/89 H Blood Pressure Location Rt brachial Position Sitting Pulse 96 Pulse Source Pulse Oximeter Intake Visit Reasons: 5 week follow up Intake Note: Pt presents to the office today for a 5 week follow up for constipation. Pt denies any N/V/D. Allergies No Known Allergies [No Known Allergies*] Allergy (Verified 01/29/23 08:12) HPI 5 week follow up HPI Details LAST VISIT: GERD (gastroesophageal reflux disease) Constipation Plan Patient will start Senokot to help him empty his bowels better. Patient will stop omeprazole and he will start Nexium half an hour before breakfast. Patient will avoid dietary triggers and late night snacking. Staying upright for minimum 3 hours after meals discussed with patient. Will check for H pylori and treat empirically if positive. Patient will be seen in 5 weeks. Will discuss going of for upper endoscopy. Patient is 47 years old and he will be due to go for colonoscopy as well. Will discuss with him. Patient is agreeable to this plan and verbalizes understanding of instructions. He was given the opportunity to ask questions and all questions answered. ? Thank you for allowing me to participate in his care Orders Orders H pylori Ag Stool Today K21.9 Vitamin B12 and Folate Today R19.7 Vitamin D 25-OH (D2 and D3) Today E55.9 Lipase Today R10.9 Medications New sennosides (Senokot) 17.2 mg (2 x 8.6 mg) PO DAILY 180 tabs 3 RF K59.04 esomeprazole magnesium (Nexium) 40 mg PO DAILY 30 caps 5RF K21.9 Discontinued omeprazole Discontinued Reason: Doctor's Order 40 mg PO DAILY 90 days 90 caps 1RF TODAY'S VISIT Patient is here today for follow-up. Patient reports that he is feeling little bettery, his symptoms of acid reflux are suppressed for the most part. Patient continues to have occasional acid reflux and dyspepsia without dysphagia or odynophagia. Patient is taking Nexium every morning. Patient reports that he has been moving his bowels better, taking Senokot every evening. Patient denies melena, hematochezia unintentional weight loss or ribbon like stools. Patient never had colonoscopy in the past. Patient diagnosed with sleep apnea, unable to use CPAP machine as patient reports to be uncomfortable for him. No issues with anesthesia in the past. Not on any anticoagulation medications. No history of infectious diseases in the past or present. Patient never had colonoscopy in the past. Patient and his mom at early age, patient believes was either stomach or colon cancer. [facility] Medical History Obesity (BMI 30-39.9) Diarrhea Skin lesion Class 1 obesity with body mass index (BMI) of 32.0 to 32.9 in adult Hand numbness GERD (gastroesophageal reflux disease) History of kidney stones Anxiety Hypoglycemia Surgical History No pertinent past surgical history Family History Father Heart problem Mother Cancer Housing: House Alcohol intake: former Year quit: 2005 Patient Tobacco Use Status: Former Tobacco user Tobacco use type: Cigarette Cigarette Packs Per Day: 2.0 Years Smoked: 6 years e-Cigarette/Vaping Use: Never Used Second Hand Smoke Exposure: Yes service: No Current occupational status: employed Current occupational exposures/hazards: No Cognitive needs: No Hearing needs: No Vision needs: Yes (glasses) Review of Systems Const Denies weight gain and Denies weight loss ENT Reports no additional complaints, Denies dysphagia and Denies odynophagia Card Reports no additional complaints Resp Reports no additional complaints GI Denies abdominal pain, Denies belching, Denies melena, Denies bloating, Denies change in bowel habits, Denies dysphagia, Denies excessive flatus, Denies dyspepsia, Denies heartburn, Denies diarrhea, Denies loose stools, Denies nausea, Denies odynophagia and Denies vomiting Reports no additional complaints Musc Reports no additional complaints Neuro Reports no additional complaints Psych Reports no additional complaints Endo Reports no additional complaints Physical Exam Vital Signs: Last Vital Signs Pulse 96 01/29/23 08:09 BP 153/89 H 01/29/23 08:09 BMI result Body Mass Index 33.1 Const General: healthy appearing, no acute distress and well developed Nutritional Appearance: obese Orientation/consciousness: patient oriented x3 HEENT Head: Yes normal to inspection, Yes normocephalic and Yes atraumatic Face and sinus: Yes normal facial exam Mouth: Normal oral and palatal mucosa present Throat: Yes posterior oropharynx normal, Yes tonsils normal and Yes uvula midline Eyes General: appearance normal, both eyes and all related structures Neck Neck: Yes normal visual inspection, Yes full ROM and Yes trachea midline Thyroid: Thyroid normal Resp Effort & Inspection: normal respiratory effort, able to speak in complete sentences, no tracheal deviation and symmetric chest movement Auscultation: clear to auscultation bilaterally Cardio Rate: regular rate Heart sounds: S1 normal heart sound present and S2 normal heart sound present GI Inspection: Yes normal to inspection, No distended and Yes obesity Palpation (GI): Soft to palpation, not firm, nontender and No hepatosplenomegaly present Auscultation: normal bowel sounds General: Yes no CVA tenderness Back/Spine/Pelvis Back: no CVA tenderness Skin General skin exam: elasticity normal, turgor normal and dry skin Neuro General: patient oriented x3 Psych Appearance: grossly normal Mental Status: mental status grossly normal Assessment & Plan Assessment & Plan (1) GERD (gastroesophageal reflux disease): Code(s): K21.9 - Gastro-esophageal reflux disease without esophagitis Qualifiers: Esophagitis presence: without esophagitis Qualified Code(s): K21.9 - Gastro-esophageal reflux disease without esophagitis (2) Constipation: Code(s): K59.00 - Constipation, unspecified Qualifiers: Constipation type: slow transit constipation Qualified Code(s): K59.01 - Slow transit constipation (3) Screen for colon cancer: Code(s): Z12.11 - Encounter for screening for malignant neoplasm of colon Plan Patient can continue taking Nexium daily. Patient was encouraged to avoid dietary triggers in late night snacking. Staying upright for minimal 3 hours after meals discussed with patient. Patient will go for upper endoscopy to rule out gastritis, esophagitis, duodenitis, gastric or peptic ulcer, H pylori. Patient admits to occasional epigastric discomfort postprandially. Patient will go for colonoscopy, as mentioned above patient has a family history of colorectal cancer. Patient was diagnosed with sleep apnea, unable to wear CPAP machine. No issues with anesthesia in the past. Not on any anticoagulation medications. Patient denies any respiratory or cardiac symptoms. Patient will be scheduled for colonoscopy and I will see him after the procedure. What to expect before during and after the procedure discussed with patient. Good bowel prep and clear liquid diet day before procedure discussed with patient. Patient is agreeable to this plan and verbalizes understanding of instructions. He was given the opportunity to ask questions and all questions answered. Thank you for allowing me to participate in his care Medications: New bisacodyl (Dulcolax (bisacodyl)) take 4 tabs at noon the day before your colonoscopy 20 mg (4 x 5 mg) PO ONCE 1 day 4 tabs 0RF Z12.11 - Encounter for screening for malignant neoplasm of colon polyethylene glycol 3350 (Miralax) As directed by gastroenterology department at [facility] 238 grams PO ONCE 238 grams 0RF Z12.11 - Encounter for screening for malignant neoplasm of colon Refilled cholecalciferol (vitamin D3) 50 mcg PO DAILY 90 caps 3RF R79.89 - Other specified abnormal findings of blood chemistry Coding Level of Care Code Est Pt Level 3 (30678) Diagnoses Gastroesophageal reflux disease without esophagitis K21.9 Esophagitis presence: without esophagitis Slow transit constipation K59.01 Constipation type: slow transit constipation Screen for colon cancer Z12.11 Time Spent (min) 30 Comment 20 minutes spent with patient and additional 10 minutes spent reviewing his records
== END 2023-01-29 09:56 | disposition home or self-care (01) ==
PROVIDERS: PCP Internal Medicine; Visit Provider Nurse Practitioner Family
DX: K21.9 Gastro-esophageal reflux disease without esophagitis (principal); K59.01 Slow transit constipation; Z12.11 Encounter for screening for malignant neoplasm of colon
CPT/HCPCS: 99213

== ENCOUNTER → 2023-01-29 07:59 | Outpatient (BNVA) | payer OTHER, SELFPAY | PROVIDERS: PCP Internal Medicine; Visit Provider Nurse Practitioner Family | DX: Z12.11 Encounter for screening for malignant neoplasm of colon (principal); K21.9 Gastro-esophageal reflux disease without esophagitis; K59.01 Slow transit constipation | CPT/HCPCS: 99212 ==

== ENCOUNTER 2023-03-13 08:47 | Outpatient (AMB) | payer OTHER, SELFPAY ==
--- NOTE | 2023-03-13 08:50 | MHC.PC.OV ---
Vital Signs 03/13/23 08:51 Height 5 ft 5 in Weight 194 lb BMI 32.3 BP 110/80 Blood Pressure Location Lt brachial Position Sitting Intake Visit Reasons: Annual Exam Intake Note: Patient here for a physical exam Sap Ppm Consultant Required: No Accompanied by: Self / Same As Patient Allergies No Known Allergies [No Known Allergies*] Allergy (Verified 03/13/23 09:19) Medication List - Last Reconciled 03/13/23 by Shannon Case MD bisacodyl (Dulcolax (bisacodyl)) 20 mg (4 x 5 mg) PO ONCE 1 day cholecalciferol (vitamin D3) 50 mcg PO DAILY CPAP (CPAP Machine/Device) As directed esomeprazole magnesium (Nexium) 40 mg PO DAILY polyethylene glycol 3350 (Miralax) 238 grams PO ONCE sennosides (Senokot) 17.2 mg (2 x 8.6 mg) PO DAILY Tobacco use date assessed: 03/13/23 Dental Screening Dental Screen Date: 03/13/23 Did you have a dental visit in the last 12 months?: Yes Did you have a dental problem in the last 6 months where you did not have access to dental care?: No Was dental information given to patient?: Patient has dentist HPI HPI Comments History of Present Illness Details This is a 48-year-old male that comes for his physical exam. Colonoscopy will be done in May 2023. No chest pain or shortness of breath. No fever or cough. Doing well. Not currently using CPAP machine because is waiting to be changed by pulmonology. [facility] Medical History Obesity (BMI 30-39.9) Diarrhea Skin lesion Class 1 obesity with body mass index (BMI) of 32.0 to 32.9 in adult Hand numbness GERD (gastroesophageal reflux disease) History of kidney stones Anxiety Hypoglycemia Surgical History No pertinent past surgical history Family History Father Heart problem Mother Cancer Social History Housing: House Alcohol intake: former Year quit: 2006 Patient Tobacco Use Status: Former Tobacco user Tobacco use type: Cigarette Cigarette Packs Per Day: 2.0 Years Smoked: 6 years e-Cigarette/Vaping Use: Never Used Second Hand Smoke Exposure: Yes service: No Current occupational status: employed Current occupational exposures/hazards: No Cognitive needs: No Hearing needs: No Vision needs: Yes (glasses) Questionnaire PHQ-9 Over the last 2 weeks, how often have you been bothered by any of the following problems? 1. Little interest or pleasure in doing things: not at all 2. Feeling down, depressed, or hopeless: not at all 3. Trouble falling or staying asleep, or sleeping too much: not at all 4. Feeling tired or having little energy: not at all 5. Poor appetite or overeating: not at all 6. Feeling bad about yourself - or that you are a failure or have let yourself or your family down: not at all 7. Trouble concentrating on things, such as reading the newspaper or watching television: not at all 8. Moving or speaking so slowly that other people could have noticed. Or the opposite - being so fidgety or restless that you have been moving around a lot more than usual: not at all 9. Thoughts that you would be better off or of hurting yourself in some way: not at all Total score: 0 Depression Screening Interpretation: Negative Depression Screening Done: Yes 32213 - PHQ-9 Billing: Yes Source: Developed by Drs. Freddy Pete, Lindsay Zavaleta, Eugenio Alexander and colleagues, with an educational yancy from [employer]. Thrive Questionnaire Date Thrive assessed: 03/13/23 I am a: Patient What is your living situation today?: I have a steady place to live Within the past 12 months, did the food you bought not last and you didn't have the money to get more?: Never true Within the past 12 months, did you worry whether your food would run out before you got money to buy more?: Never true Do you have trouble paying for medicines?: No Do you have trouble getting transportation to medical appointments?: No Do you have trouble paying your heating and electricity bill?: No Do you have trouble taking care of your child, family member or friend?: No Do you have trouble with day-to-day activities such as bathing, preparing meals, shopping, managing finances, etc.?: No Are you currently unemployed and looking for a job?: No Are you interested in more education?: No Please select the resources that you would like help with: None Currently or been in a relationship where the following occur: no concerns reported AUDIT C Alcohol Use Questionnaire (AUDIT-C) 1. How often do you have a drink containing alcohol?: Never Total Score: 0 Score Reviewed/Action Taken: No UMER-7 AMB Questionnaire UMER-7 Date UMER - 7 assessed: 03/13/23 Feeling nervous, anxious, or on edge: 0 = Not at all Not being able to stop or control worryin = Not at all Worrying too much about different things: 0 = Not at all Trouble relaxin = Not at all Being so restless that it is hard to sit still: 0 = Not at all Becoming easily annoyed or irritable: 0 = Not at all Feeling afraid as if something awful might happen: 0 = Not at all Total UMER-7 score (0-4 normal; 5-9 mild; 10-14 moderate; 15-21 severe): 0 Source: Developed by Drs. Freddy Pete, Lindsay Zavaleta, Eugenio Alexander and colleagues, with an educational yancy from [employer]. UMER-7 Assessment Billing UMER-7 Assessment Tool: UMER-7 Assessment 87468 Review of Systems Const All systems reviewed & are unremarkable except as noted in HPI and below Eyes Reports no additional complaints, Denies change in vision and Denies other visual disturbances Card Denies chest pain at rest, Denies chest pain with activity, Denies edema, Denies irregular heart rhythm, Denies claudication, Denies dyspnea, Denies dyspnea on exertion, Denies orthopnea, Denies paroxysmal nocturnal dyspnea and Denies slow heart rate Resp Denies cough, Denies dyspnea and Denies dyspnea on exertion GI Denies abdominal pain, Denies change in bowel habits, Denies excessive flatus, Denies nausea and Denies vomiting Denies urinary hesitancy, Denies urinary incontinence and Denies urinary urgency Musc Denies abnormal gait, Denies atrophy, Denies deformity and Denies limited range of motion Skin/Breast Denies bleeding lesions, Denies changing lesions and Denies rash Neuro Denies abnormal gait, Denies behavioral changes, Denies confusion and Denies lack of coordination Psych Denies behavioral changes and Denies confusion Physical exam (Primary Care) Vital Signs: Last Vital Signs BP 110/80 03/13/23 08:51 BMI result Body Mass Index 32.3 Tobacco/Smoking Status: Tobacco use Status Tobacco use date assessed 03/13/23 03/13/23 08:57 Patient Tobacco Use Status Former Tobacco user 03/13/23 08:50 Tobacco use type Cigarette 03/13/23 08:50 e-Cigarette/Vaping Use Never Used 03/13/23 08:50 PHQ-9: PHQ-9 Score PHQ-9: Total score 0 03/13/23 08:57 Depression Screening Interpretation: Negative Thrive Assessment: Date of Thrive Assessment Date Thrive assessed 03/13/23 03/13/23 08:57 Currently or been in a relationship where the following occur: no concerns reported Const General: No confusion Orientation/consciousness: patient oriented x3 and No confusion HENMT Head: Yes normal to inspection, Yes normocephalic and Yes atraumatic Ears: external ears normal Eyes General: appearance normal, both eyes and all related structures Eyelids: Yes eyelids normal Conjunctivae: conjunctivae normal Neck Neck: Yes normal visual inspection and Yes supple Resp Effort & Inspection: normal respiratory effort Auscultation: clear to auscultation bilaterally Cardio Jugular venous distension: no JVD Rate: regular rate Rhythm: regular rhythm Heart sounds: S1 normal heart sound present and S2 normal heart sound present GI Inspection: Yes normal to inspection Palpation (GI): Soft to palpation and nontender Auscultation: normal bowel sounds Skin General skin exam: no rashes or lesions noted Neuro General: patient oriented x3, no focal motor deficits and No confusion Extrem General: Yes full ROM Psych Appearance: grossly normal Office Procedures Flu Questionnaire Does the patient have a severe egg allergy?: No Immunizations flu vacc [id number] 6mos up(PF) 60 mcg(15 mcgx4)/0.5 mL IM syringe Performing Provider: Shannon Case MD [facility] Documented (not given) by: VASQUEZ Estrada on 03/13/23 08:50 Reason Not Given: Patient Refused Assessment and Plan Assessment & Plan (1) Physical exam: Code(s): Z00.00 - Encounter for general adult medical examination without abnormal findings Plan: Repeat in a year. Orders: Orders Influenza [id number] Immunization Today Z23 - Encounter for immunization Lipid Panel Today E78.5 - Hyperlipidemia, unspecified Comprehensive [place]. Panel Fast Today Z00.00 - Encounter for general adult medical examination without abnormal findings Vitamin D 25-OH Total Today E55.9 - Vitamin D deficiency, unspecified Medications: Refilled polyethylene glycol 3350 (Miralax) As directed by gastroenterology department at [facility] 238 grams PO ONCE 238 grams 0RF Z12.11 - Encounter for screening for malignant neoplasm of colon bisacodyl (Dulcolax (bisacodyl)) take 4 tabs at noon the day before your colonoscopy 20 mg (4 x 5 mg) PO ONCE 1 day 4 tabs 0RF Z12.11 - Encounter for screening for malignant neoplasm of colon cholecalciferol (vitamin D3) 50 mcg PO DAILY 90 caps 3RF R79.89 - Other specified abnormal findings of blood chemistry Coding Level of Care Code Est Pt Prev Care 40-64y(19530) Diagnoses Physical exam Z00.00 Additional Codes UMER-7 Assessment Billing - UMER-7 Assessment Tool: UMER-7 Assessment 34146 ([id number]) Time Spent (min) 32
[2023-03-13 08:51] VITALS: BP 110/80; BMI 32.3
== END 2023-03-13 09:27 | disposition home or self-care (01) ==
PROVIDERS: PCP Internal Medicine; Visit Provider Internal Medicine
DX: Z00.00 Encounter for general adult medical examination without abnormal findings (principal)
CPT/HCPCS: 99396

== ENCOUNTER 2023-05-16 09:26 | Outpatient (AMB) | payer OTHER, SELFPAY ==
--- NOTE | 2023-05-16 09:34 | MHC.OFFVIS ---
Intake Vital Signs 05/16/23 09:35 Height 5 ft 5 in Weight 201 lb 11.567 oz BMI 33.6 BP 110/80 Blood Pressure Location Lt brachial Position Sitting Pulse 73 Pulse Source Pulse Oximeter Pulse Oximetry (%) 95 Oxygen Delivery Method Room Air Intake Visit Reasons: Obstructive sleep apnea Intake Note: pt is here for follow up of SOFIA, and starting cpap feels like he is doing much better with the machine. He would like a full face mask to larger size. Environmental Compliance Specialist Required: Yes Environmental Compliance Specialist Name: Guillermina Allergies No Known Allergies [No Known Allergies*] Allergy (Verified 05/16/23 09:58) Medication List - Last Reconciled 05/16/23 by Gisele Hunt MD bisacodyl (Dulcolax (bisacodyl)) 20 mg (4 x 5 mg) PO ONCE 1 day CPAP (CPAP Machine/Device) As directed esomeprazole magnesium (Nexium) 40 mg PO DAILY polyethylene glycol 3350 (Miralax) 238 grams PO ONCE sennosides (Senokot) 17.2 mg (2 x 8.6 mg) PO DAILY Do you need a note to return to daycare/school/sports/work: No HPI Obstructive sleep apnea HPI Details This 48 years old gentleman with known diagnosis of obstructive sleep apnea, comes for follow-up after 4 months. He claims that he has been using CPAP every night. However according to the compliance report he has used 17/30 nights. He claims that when he uses the CPAP he sleeps well, but complains of some air leak. He is looking for a mask of large size . With better fitting Denies any daytime sleepiness [facility] Medical History Obesity (BMI 30-39.9) Diarrhea Skin lesion Class 1 obesity with body mass index (BMI) of 32.0 to 32.9 in adult Hand numbness GERD (gastroesophageal reflux disease) History of kidney stones Anxiety Hypoglycemia Surgical History No pertinent past surgical history Family History Father Heart problem Mother Cancer Social History Housing: House Alcohol intake: former Year quit: 2006 Patient Tobacco Use Status: Former Tobacco user Tobacco use type: Cigarette Cigarette Packs Per Day: 2.0 Years Smoked: 6 years e-Cigarette/Vaping Use: Never Used Second Hand Smoke Exposure: Yes service: No Current occupational status: employed Current occupational exposures/hazards: No Cognitive needs: No Hearing needs: No Vision needs: Yes (glasses) Review of Systems Const All systems reviewed & are unremarkable except as noted in HPI and below Reports fatigue and Reports snoring Eyes Reports no additional complaints ENT Reports no additional complaints Card Denies chest pain, Denies irregular heart rhythm, Denies leg edema and Reports dyspnea on exertion Resp Reports dyspnea on exertion, Reports snoring and Denies wheezing GI Reports no additional complaints Reports no additional complaints Musc Reports no additional complaints Skin/Breast Reports system reviewed and no additional complaints, except as documented Neuro Reports no additional complaints Psych Reports no additional complaints Endo Reports fatigue and Reports other (WEIGHT GAIN DURING THE PAST 6-8 MONTHS) Aller/Immun Denies wheezing Physical Exam Vital Signs: Last Vital Signs Pulse 73 05/16/23 09:35 BP 110/80 05/16/23 09:35 Pulse Ox 95 05/16/23 09:35 Oxygen Delivery Method Room Air 05/16/23 09:35 BMI result Body Mass Index 33.6 Const General: healthy appearing (EXCEPT FOR BEING OVERWEIGHT), comfortable, no acute distress, alert and awake Orientation/consciousness: patient oriented x3 HEENT Head: Yes normal to inspection General nose exam: No nasal polyps present and No nasal discharge present Face and sinus: Yes sinuses nontender Mouth: oropharynx abnormals (OROPHARYNX IS CROWDED, MALLAMPATI CLASS 3) Throat: Yes posterior oropharynx normal Eyes General: appearance normal, both eyes and all related structures Neck Neck: Yes normal visual inspection, Yes no lymphadenopathy, Yes trachea midline, Yes no JVD and Yes other (NECK CIRCUMFERENCE 17 IN) Thyroid: Thyroid normal Chest Chest palpation & inspection: normal inspection of the chest, normal palpation of entire chest wall and no tenderness Resp Effort & Inspection: normal respiratory effort Auscultation: clear to auscultation bilaterally, no crackles and no wheezes Cardio Palpation: normal PMI Rate: regular rate Rhythm: regular rhythm Heart sounds: no gallops and no murmurs Peripheral pulses: Peripheral pulses 2+ throughout GI Palpation (GI): Soft to palpation, nontender, No hepatosplenomegaly present and no masses Auscultation: normal bowel sounds Back/Spine/Pelvis Thoracic/Lumbar Spine: thoracic and lumbar spine normal to inspection Skin General skin exam: no rashes or lesions noted Neuro General: patient oriented x3 and no focal motor deficits Cranial nerves: Yes CN's II-XII intact bilaterally Extrem General: Yes normal to inspection, Yes no clubbing, cyanosis or edema and Yes no calf tenderness Psych Appearance: grossly normal and well kempt Speech and movement: Normal speech and movement present Results Reviewed Results Reviewed: Compliance report for the last 30 nights is reviewed. He use 17/30 nights., 57% Average use it per night. 5 hours 29 minutes pressure used mostly. 11-13 cm There is only minimal air. Leak reported Residual AHI 2.0 Assessment & Plan Assessment & Plan (1) Obesity (BMI 30-39.9): Comment: PATIENT IS MODERATELY OBESE. GIVES HISTORY OF GRADUAL WEIGHT GAIN SINCE START OF 2022. THIS COINCIDES WITH HIS ONSET OF DYSPNEA ON EXERTION AND ALSO SLEEP APNEA SYMPTOMS. Code(s): E66.9 - Obesity, unspecified Plan: DISCUSSED WITH HIM ABOUT THE WEIGHT AND ENCOURAGED HIM TO LOSE WEIGHT BY CUTTING DOWN THE CALORIES INTAKE AND ALSO BY WALKING DAILY. (2) SOFIA (obstructive sleep apnea): Comment: As per home-based sleep study he is known to have moderately severe obstructive sleep apnea. He has been on CPAP therapy, and claims that he uses it every night. He has not fully satisfied with the mask claiming that it there is some air leak during the night. His compliance is somewhat suboptimal using only 17/30 nights Code(s): G47.33 - Obstructive sleep apnea (adult) (pediatric) Plan: Talked to him in detail and educated about the proper use of CPAP. He needs to use it every night. We will send a request for new CPAP mask ( Dream Wear ) of large size. His sample of the mask given from the office. Coding Level of Care Code Est Pt Level 3 (09007) Diagnoses Obesity (BMI 30-39.9) E66.9 SOFIA (obstructive sleep apnea) G47.33
[2023-05-16 09:35] VITALS: BP 110/80; PULSE 73; O2SAT 95; BMI 33.6
== END 2023-05-16 09:59 | disposition home or self-care (01) ==
PROVIDERS: PCP Internal Medicine; Visit Provider Internal Medicine
DX: E66.9 Obesity, unspecified (principal); G47.33 Obstructive sleep apnea (adult) (pediatric)
CPT/HCPCS: 99213

== ENCOUNTER → 2023-05-16 09:26 | Outpatient (BNVA) | payer OTHER, SELFPAY | PROVIDERS: PCP Internal Medicine; Visit Provider Internal Medicine | DX: G47.33 Obstructive sleep apnea (adult) (pediatric) (principal); E66.9 Obesity, unspecified | CPT/HCPCS: 99212 ==

== ENCOUNTER 2023-08-22 16:03 | Outpatient (AMB) | payer OTHER, SELFPAY ==
--- NOTE | 2023-08-22 16:12 | A.OFFPC_ITS ---
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 Accompanied by: Self / Same As Patient Allergies No Known Allergies [No Known Allergies*] Allergy (Verified 08/22/23 16:52) Medication List - Last Reconciled 08/22/23 by Shannon Case MD bisacodyl (Dulcolax (bisacodyl)) 20 mg (4 x 5 mg) PO ONCE 1 day CPAP (CPAP Machine/Device) As directed esomeprazole magnesium (Nexium) 40 mg PO DAILY polyethylene glycol 3350 (Miralax) 238 grams PO ONCE sennosides (Senokot) 17.2 mg (2 x 8.6 mg) PO DAILY Tobacco use date assessed: 03/13/23 Dental Screening Dental Screen Date: 03/13/23 HPI HPI Comments History of Present Illness Details This is a 48-year-old male with GERD and chronic constipation that complains of erectile dysfunction. I will order testosterone. GERD stable with PPIs as needed. Constipation well control with senna as needed. Has a colonoscopy in October but he is moving to [place] September 22 and is looking to have it earlier than that. No chest pain or shortness on breath. He has obese with a BMI of 33.1 and was advised to diet and exercise to reach BMI goal less than 30. [facility] Medical History (Updated 08/22/23 @ 18:58 by Shannon Case MD) Obesity (BMI 30-39.9) Diarrhea Skin lesion Class 1 obesity with body mass index (BMI) of 32.0 to 32.9 in adult Hand numbness GERD (gastroesophageal reflux disease) History of kidney stones Anxiety Hypoglycemia Surgical History No pertinent past surgical history Family History Father Heart problem Mother Cancer Social History Housing: House Alcohol intake: former Year quit: 2005 Patient Tobacco Use Status: Former Tobacco user Tobacco use type: Cigarette Cigarette Packs Per Day: 2.0 Years Smoked: 6 years Packs Per Year: 0 e-Cigarette/Vaping Use: Never Used Second Hand Smoke Exposure: Yes service: No Current occupational status: employed Current occupational exposures/hazards: No Cognitive needs: No Hearing needs: No Vision needs: Yes (glasses) Questionnaire Thrive Questionnaire Date Thrive assessed: 03/13/23 UMER-7 AMB Questionnaire UMER-7 Date UMER - 7 assessed: 03/13/23 Source: Developed by Drs. Freddy Pete, Lindsay Zavaleta, Eugenio Alexander and colleagues, with an educational yancy from [employer]. Review of Systems Const All systems reviewed & are unremarkable except as noted in HPI and below Card Denies chest pain at rest, Denies chest pain with activity, Denies edema, Denies irregular heart rhythm, Denies claudication, Denies dyspnea, Denies dyspnea on exertion, Denies orthopnea, Denies paroxysmal nocturnal dyspnea and Denies slow heart rate Resp Denies cough, Denies dyspnea and Denies dyspnea on exertion Physical exam (Primary Care) Vital Signs: Last Vital Signs BP 112/82 08/22/23 16:13 BMI result Body Mass Index 33.1 Tobacco/Smoking Status: Tobacco use Status Tobacco use date assessed 03/13/23 08/22/23 16:17 Patient Tobacco Use Status Former Tobacco user 08/22/23 16:17 Tobacco use type Cigarette 08/22/23 16:17 e-Cigarette/Vaping Use Never Used 08/22/23 16:17 Thrive Assessment: Date of Thrive Assessment Date Thrive assessed 03/13/23 08/22/23 16:17 Resp Effort & Inspection: normal respiratory effort Auscultation: clear to auscultation bilaterally Cardio Jugular venous distension: no JVD Rate: regular rate Rhythm: regular rhythm Heart sounds: S1 normal heart sound present and S2 normal heart sound present Extrem General: Yes full ROM Assessment and Plan Assessment & Plan (1) GERD (gastroesophageal reflux disease): Code(s): K21.9 - Gastro-esophageal reflux disease without esophagitis Qualifiers: Esophagitis presence: without esophagitis Qualified Code(s): K21.9 - Gastro-esophageal reflux disease without esophagitis Plan: Continue PPIs. (2) Erectile dysfunction: Code(s): N52.9 - Male erectile dysfunction, unspecified Plan: Testosterone level ordered. Start tadalafil as needed. (3) Chronic idiopathic constipation: Code(s): K59.04 - Chronic idiopathic constipation Plan: Continue senna as needed. Orders: Orders Testosterone, Free/Total Today N52.9 - Male erectile dysfunction, unspecified Lipid Panel Today E78.5 - Hyperlipidemia, unspecified Comprehensive [place]. Panel Fast Today E66.9 - Obesity, unspecified Medications: Refilled esomeprazole magnesium (Nexium) 40 mg PO DAILY 30 caps 5RF K21.9 - Gastro- esophageal reflux disease without esophagitis sennosides (Senokot) 17.2 mg (2 x 8.6 mg) PO DAILY 180 tabs 3RF K59.04 - Chronic idiopathic constipation Coding Level of Care Code Est Pt Level 3 (18318) Complex EM visit Add On G2211 Diagnoses Gastroesophageal reflux disease without esophagitis K21.9 Esophagitis presence: without esophagitis Erectile dysfunction N52.9 Chronic idiopathic constipation K59.04 Time Spent (min) 18
[2023-08-22 16:13] VITALS: BP 112/82; BMI 33.1
== END 2023-08-22 17:03 | disposition home or self-care (01) ==
PROVIDERS: PCP Internal Medicine; Visit Provider Internal Medicine
DX: K21.9 Gastro-esophageal reflux disease without esophagitis (principal); N52.9 Male erectile dysfunction, unspecified; K59.04 Chronic idiopathic constipation
CPT/HCPCS: 99213; G2211